=== PATIENT | female | born 1960 | race Caucasian/White ===

== ENCOUNTER 2022-06-07 08:01 | Outpatient (RCR) | payer MEDICARE, MEDICAID, SELFPAY ==
[2022-06-07] VITALS (7 sets, daily range): BP systolic 93–143; BP diastolic 60–84; PULSE 65–77; RESP 16; TEMP 35.8–36.7; O2SAT 96–100
[2022-06-07] MEDS: HEPARIN 500 UNIT/5 ML SYRINGE IVF (16:02)
[2022-06-07] MEDS: 5 % DEXTROSE 250 ML IV (16:02)
[2022-06-07] MEDS: SODIUM CHLORIDE 0.9 % (FLUSH) 10 ML SYRINGE IVF (16:02)
== END 2022-06-24 23:59 | disposition home or self-care (01) ==
LOC: CCIC 08:01
PROVIDERS: PCP Physician Assistant Medical; Visit Provider Clinical Nurse Specialist
DX: C34.90 Malignant neoplasm of unspecified part of unspecified bronchus or lung (principal); G13.0 Paraneoplastic neuromyopathy and neuropathy
CPT/HCPCS: 96365; 96366; J1569; J1642; J7050

== ENCOUNTER 2022-12-04 09:00 | Outpatient (RCR) | payer MEDICARE, MEDICAID, SELFPAY ==
[2022-07-06 08:52] VITALS: BP 132/86; PULSE 73; RESP 16; TEMP 36.4; O2SAT 100
[2022-08-16 08:45] VITALS: BP 148/88; PULSE 70; RESP 16; TEMP 35.8; O2SAT 99
--- NOTE | 2022-09-16 22:29 | URNOTE ---
UR note from Brittany Zamora RN 12/12/21: Request received from [facility] for prior authorization of IVIG ([id number]). Patient [place] and [place]. Per CMS.gov Article P01046 no prior authorization is required for IVIG. Services are based on medical necessity and follow Medicare and Medicaid guidelines.
[2022-09-20 08:30] VITALS: BP 128/79; PULSE 75; RESP 16; TEMP 36.2
[2022-10-26 08:26] VITALS: BP 116/61; PULSE 78; RESP 18; TEMP 36.3; O2SAT 100
--- NOTE | 2022-10-26 15:01 | PC.NURSE ---
Orders & Dosing Pt present today at [facility] for IVIG infusion. Based on pt's current weight (54.61kg) and given orders to give 0.4g/kg, RN calculated 21g. Pt would like to recieve 20g as she did last time she was here. Reviewed calculations with Ania Maynard APRN and provider agreed and ok'd that dose. Pharmacy notified. RN contacted pt's neurologist, Dr. Jovanny Álvarez, at [facility] in [place] with the updated/calculated dose and also requested new orders as previous order dated 12/08/2021 will soon . Invited call back with and follow-up questions and provided [facility] number.
[2022-12-04 09:25] VITALS: BP 127/84; PULSE 64; RESP 16; TEMP 35.5; O2SAT 99
--- NOTE | 2022-12-04 14:49 | URNOTE ---
Request received for authorization for [employer] ([id number]). Prior authorization is not required as services are based on medical necessity and follow Medicare guidelines.
== END 2023-01-02 23:59 | disposition home or self-care (01) ==
LOC: CCIC 09:00
PROVIDERS: PCP Physician Assistant Medical; Referring Provider Physician Assistant Medical; Visit Provider Clinical Nurse Specialist
DX: C34.90 Malignant neoplasm of unspecified part of unspecified bronchus or lung (principal); G13.0 Paraneoplastic neuromyopathy and neuropathy
CPT/HCPCS: 96365; 96366; 96413; 96415; J1569

== ENCOUNTER 2023-01-31 08:37 | Day surgery (SDC) | payer MEDICARE, MEDICAID, SELFPAY ==
[2023-01-31] MEDS: SODIUM CHLORIDE 0.9 % (FLUSH) 10 ML SYRINGE IVF (09:00)
[2023-01-31] MEDS: LACTATED RINGERS 1000 ML 1,000 ML 100 ML IV (09:00)
[2023-01-31 09:07] VITALS: BP 151/87; PULSE 66; RESP 18; TEMP 36.6; O2SAT 100; BMI 20.7
[2023-01-31] MEDS: CEFAZOLIN 1 GM inj IVP (10:00)
--- NOTE | 2023-01-31 10:03 | W.ANESCHARGE ---
Anesthesia Charges Start Date/Time Anesthesia Start Date: 01/31/23 Anesthesia Start Time: 09:51 Stop Date/Time Anesthesia Stop Date: 01/31/23 Anesthesia Stop Time: 10:37
[2023-01-31] MEDS: BUPIVACAINE 0.25% 30 ML INJECTION (10:18)
--- NOTE | 2023-01-31 10:32 | PM.GSPRC ---
Operative Note Date of procedure: 01/31/23 Pre-op diagnosis: Left upper quadrant scar, requiring revision and evaluation for possible hernia Post-op diagnosis: left upper quadrant ventral hernia repair Type of Procedure: open left upper quadrant ventral hernia repair Indications: Patient is a 62-year-old female who presented to clinic with pain and bulging at a previous gastrostomy site. Risks and benefits of operative intervention were discussed at length with the patient. Risks included, but were not limited to: Bleeding, infection, risk of damage during structures, risk of recurrence and possible need for additional procedures. All questions concerns were addressed with patient agreeing to proceed. Procedure Description: After discussing the risks and benefits of the procedure, the patient signed informed consent.? The operative site was marked and the patient was brought to the operating room and placed on the operating table in supine position.? Care was taken to pad the patient's pressure points.?? The patient was then given sedation by anesthesia.?? The operative site was then prepped and draped in the usual sterile fashion.? A time-out was then performed. Local anesthetic was used to infiltrate the surgical site. A vertical elliptical incision was made around the previously well-healed scar. Dissection was carried down through subcutaneous tissues via cautery. During dissection a small amount serous fluid was expelled from the site of the scar, this was cultured. The overlying scar was removed in its entirety. The fascia was cleared off with evidence of a 5 mm fascial defect. The defect was closed with interrupted 0 Nurolon stitches. The surgical field was examined for hemostasis, which was excellent. The site was irrigated with normal saline. The incision was then closed in layers with interrupted 3 0 Vicryl and running 4-0 Monocryl stitch. Dermabond and sterile dressings were applied. The patient was then woken and transported to the recovery area in stable condition. ? The patient tolerated the procedure well. Findings: Small incisional hernia at previous gastrostomy site. Anesthesia: MAC Surgeon: Carolina Gonzalez MD Estimated blood loss (mL): 1 Additional Specimen Information: Left upper quadrant scar. Culture sent for evaluation. Condition: stable Disposition: same day
[2023-01-31 10:35] VITALS: BP 77/59; PULSE 79; RESP 16; TEMP 36.4; O2SAT 97
--- NOTE | 2023-01-31 10:37 | W.ANESCHARGE ---
Anesthesia Charges Start Date/Time Anesthesia Start Date: 01/31/23 Anesthesia Start Time: 09:51 Stop Date/Time Anesthesia Stop Date: 01/31/23 Anesthesia Stop Time: 10:37
[2023-01-31 10:45] VITALS: BP 100/79; PULSE 73; RESP 16; O2SAT 95
[2023-01-31 11:00] VITALS: BP 108/79; PULSE 75; RESP 16; O2SAT 96
[2023-01-31 11:15] VITALS: BP 102/79; PULSE 76; RESP 16; O2SAT 97
== END 2023-01-31 11:28 | disposition home or self-care (01) ==
LOC: OR 08:40
PROVIDERS: Visit Provider Surgery
PROC: (CPT 49591; principal; 2023-01-31 10:00)
DX: K43.2 Incisional hernia without obstruction or gangrene (principal)
CPT/HCPCS: 49591; 00752; 87070; 87075; 87205; 88304; J0690; J1100; J2250; J2405; J2704; J3010; J3490; J7120

== ENCOUNTER 2023-03-07 08:30 | Outpatient (RCR) | payer MEDICARE, MEDICAID, SELFPAY ==
[2023-01-15 08:24] VITALS: BP 103/74; PULSE 96; RESP 18; TEMP 36.7; O2SAT 96
[2023-03-07 08:50] VITALS: BP 123/85; PULSE 83; RESP 16; TEMP 36.6; O2SAT 95
[2023-03-07] MEDS: 5 % DEXTROSE 250 ML IV (09:00)
--- NOTE | 2023-04-16 13:31 | ONC.NURNOTE ---
Addendum entered by Zahida Burgos RN 04/25/23 08:10: Pt set up for her infusions at [facility] location per [facility] record. Original Note: Left message with pt stating her IVIG infusion payment from February has been denied, now in appeal process. [employer] also left message with Dr. Álvarez's office that appeal is in process and can take up to 60 days.
== END 2023-07-14 23:59 | disposition home or self-care (01) ==
LOC: CCIC 08:30
PROVIDERS: PCP Physician Assistant Medical; Referring Provider Physician Assistant Medical; Visit Provider Clinical Nurse Specialist
DX: C34.90 Malignant neoplasm of unspecified part of unspecified bronchus or lung (principal); G13.0 Paraneoplastic neuromyopathy and neuropathy; G70.80 Lambert-Eaton syndrome, unspecified
CPT/HCPCS: 96365; 96366; 96413; 96415; J1569; J7050